=== PATIENT | male | born 1975 | race African-American/Black ===

== ENCOUNTER 2020-11-06 08:22 | Emergency (ER) | payer OTHER ==
[~2020-11-06 08:22] MED LIST: IBUPROFEN800 MG PO; MEDROL 4MG DOSEP4 MG PO
[2020-11-06 08:51] LABS: BASOPHIL 0.8 % (0-2); EOSINOPHIL 1.2 % (0-5); HCT 44.3 % (42.0-52.0); HGB 14.6 g/dl (13.2-18.0); LYMPHOCYTE 34.1 % (15-48); MCH 29.9 pg (25.0-31.0); MCV 90.8 fL (78.0-100.0); MONOCYTE 12.1 % (0-12); MPV 9.3 fL (6.0-9.5); NEUTROPHIL 51.5 % (41-80); NRBC 0; PLT 376 K/uL (150-400); RBC 4.88 M/uL (4.70-6.00); RDW 13.2 % (11.5-14.0); WBC 7.6 K/uL (4.0-10.5)
[2020-11-06 09:04] LABS: INR 1.02 (0.9-1.2); PROTHROMBIN TIME 12.7 SECONDS (11.4-13.6); PTT 32.2 SECONDS (22.2-34.7)
[2020-11-06 09:05] LABS: D-DIMER 0.39 ug/mLFEU (0.00-0.41)
[2020-11-06 09:10] LABS: ALBUMIN 3.6 g/dL (3.4-5.0); BILIRUBIN - TOTAL 0.2 mg/dL (0.2-1.0); BUN/CREAT RATIO (CALC) 9.8 RATIO; CREATININE 1.02 mg/dL (0.67-1.17); GLOBULIN (CALCULATION) 3.5 g/dL; POTASSIUM 3.7 mmol/L (3.5-5.1); TOTAL PROTEIN 7.1 g/dL (6.4-8.2)
== END 2020-11-06 13:05 | disposition home or self-care (01) ==
LOC: FER 08:22
PROVIDERS: Emergency Medicine
DX: R07.89 Other chest pain (principal); R06.02 Shortness of breath; J45.909 Unspecified asthma, uncomplicated; F17.200 Nicotine dependence, unspecified, uncomplicated; Z86.718 Personal history of other venous thrombosis and embolism
CPT/HCPCS: 36415; 71045; 80053; 83880; 84484; 85025; 85379; 85610; 85730; 93005